=== PATIENT | male | born 1990 | race Caucasian/White ===

== ENCOUNTER 2019-01-04 02:25 | Inpatient (IN) ==
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
[2019-01-04 03:12] LABS: AGAP 16; ALBUMIN 4.5 g/dL (3.5-5.0); ALKALINE PHOSPHATASE 91 U/L (32-122); BUN 7 mg/dL (8-22); CALCIUM 8.8 mg/dL (8.8-10.2); CHLORIDE 103 mmol/L (98-107); COSMO 287; CREATININE 0.7 mg/dL (0.7-1.2); ESTIMATED GFR > 60; GLUCOSE 133 mg/dL (70-104); GOT 38 U/L (10-34); GPT 18 U/L (10-44); POTASSIUM 3.7 mmol/L (3.5-5.1); SODIUM 144 mmol/L (136-145); TCO2 26 mmol/L (25-35)
[2019-01-04 03:41] LABS: BASO# 0.03 X1000 (0.0-0.2); BASO% 0.5 % (0.0-0.8); EOS# 0.08 X1000 (0.0-0.7); EOS% 1.4 % (0.0-10.0); HEMATOCRIT 45.4 % (42.0-52.0); HEMOGLOBIN 15.2 g/dL (14.0-18.0); IMM GRAN# 0.01 X1000 (0.0-0.04); IMM GRAN% 0.2 % (0.0-0.5); LYMPH# 3.14 X1000 (1.2-3.4); LYMPH% 54.2 % (20.5-51.1); MCH 31.3 PG (27-31); MCHC 33.5 g/dL (33-37); MCV 93.4 FL (81-99); MONO# 0.59 X1000 (0.11-0.59); MONO% 10.2 % (1.7-9.3); MPV 10.2 FL (7.4-10.4); NEUT# 1.94 X1000 (1.4-6.5); NEUT% 33.5 % (42.2-75.2); PLT 224 X1000 (130-400); RBC 4.86 XMIL (4.7-6.1); RDW 12.7 % (11.5-14.5); WBC 5.79 X1000 (4.8-10.8)
[2019-01-04 03:47] LABS: UR AMPHETAMINES QUAL NONE DETECTED (NONE DETECT); UR BARBITUATES QUAL NONE DETECTED (NONE DETECT); UR BENZODIAZEPIN QUAL NONE DETECTED (NONE DETECT); UR CANNABINOIDS QUAL NONE DETECTED (NONE DETECT); UR COCAINE QUAL NONE DETECTED (NONE DETECT); UR METHADONE QUAL NONE DETECTED (NONE DETECT); UR METHAMPHETAMINE QUAL NONE DETECTED (NONE DETECT); UR OPIATES QUAL NONE DETECTED (NONE DETECT); UR OXYCODONE QUAL NONE DETECTED (NONE DETECT); UR PCP QUAL NONE DETECTED (NONE DETECT); UR PROPOXYPHENE QUAL NONE DETECTED (NONE DETECT); UR TCA QUAL NONE DETECTED (NONE DETECT)
[2019-01-04 03:48] LABS: BILIRUBIN URINE NEGATIVE (NEGATIVE); BLOOD URINE NEGATIVE (NEGATIVE); CLARITY CLEAR (CLEAR); COLOR YELLOW; GLUCOSE URINE NEGATIVE (NEGATIVE); KETONE URINE NEGATIVE (NEGATIVE); LEUKOCYTES URINE NEGATIVE (NEGATIVE); NITRITE URINE NEGATIVE (NEGATIVE); PROTEIN URINE TRACE mg/dL (NEGATIVE); SP GRAVITY URINE 1.005; URINE BACTERIA NEGATIVE /HFP; URINE EPITHELIAL CELLS <10 /HPF (<10); URINE RBC <10 /HPF (<10); URINE SOURCE CATH; URINE WBC <10 /HPF (<10); UROBILINOGEN URINE NORMAL
--- NOTE | 2019-01-04 05:22 | Diag Imaging Result Doc PS360 ---
EXAM: CHEST-PORTABLE HISTORY: ams - intoxicated TECHNIQUE: Chest single view COMPARISON: 11/16/2018 FINDINGS: The lungs are well expanded. The heart is not enlarged. The vessels are not distended. There are no infiltrates. No effusion identified. IMPRESSION: Negative exam. Electronically signed by Simone Underwood 01/04/2019 5:19 AM
[2019-01-04] MEDS: NS 1,000 ML IV SCH ×5 (05:27→15:54)
[2019-01-04 08:00] LABS: BE 5.3 mmoll (-3.0-3.0); BLOOD TYPE ARTERIAL; METHB 1.1 % (0.0-1.5); O2HB 94.9 % (95.0-99.0); PO2(98.6) 89 mmHg (60-100); SAMPLE BLOOD; SAO2 97.9 % (95.0-100.0); THB 15.7 g/dL (11.5-17.4)
[2019-01-04 08:09] LABS: ALLEN TEST YES; MODALITY ROOM AIR; PCO2(98.6) 51 mmHg (35-45)
[2019-01-04 09:26] LABS: HEMATOCRIT 45.4 % (42.0-52.0); HEMOGLOBIN 15.3 g/dL (14.0-18.0); MCH 31.4 PG (27-31); MCHC 33.7 g/dL (33-37); MCV 93.2 FL (81-99); RBC 4.87 XMIL (4.7-6.1); RDW 13.1 % (11.5-14.5); WBC 3.5 X1000 (4.8-10.8)
[2019-01-04 09:30] LABS: AGAP 10; ALBUMIN 4.4 g/dL (3.5-5.0); ALKALINE PHOSPHATASE 83 U/L (32-122); BUN 7 mg/dL (8-22); CALCIUM 8.5 mg/dL (8.8-10.2); CHLORIDE 107 mmol/L (98-107); COSMO 294; CREATININE 0.8 mg/dL (0.7-1.2); ESTIMATED GFR > 60; GLUCOSE 96 mg/dL (70-104); GOT 34 U/L (10-34); GPT 19 U/L (10-44); POTASSIUM 4.7 mmol/L (3.5-5.1); SODIUM 149 mmol/L (136-145); TCO2 32 mmol/L (25-35); TOTAL PROTEIN 7.8 g/dL (6.3-8.3)
[2019-01-04] MEDS ORDERED: M.V.I.-12 10 ML, FOLIC ACID 1 MG, MAGNESIUM SULFATE 1 GM, THIAMINE 100 MG in NS 1,000 ML IV ONE ×2 (09:44→10:30)
[2019-01-04] MEDS ORDERED: BENTYL PO PRN (09:44)
[2019-01-04] MEDS: LIBRIUM PO SCH ×3 (10:00→23:59)
[2019-01-04] MEDS: ATARAX PO PRN ×2 (15:31→20:40)
[2019-01-04] MEDS: ROBAXIN PO PRN (15:32)
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
[2019-01-04] MEDS: KEPPRA PO SCH (20:40)
[2019-01-05] MEDS ORDERED: BLISTEX MEDICATED BERRY LIP BALM TOP PRN (00:05)
[2019-01-05] MEDS: ATARAX PO PRN (00:29)
--- NOTE | 2019-01-05 01:55 | HISTORY AND PHYSICAL ---
ADDENDUM: Patient seen and examined by myself. Full note dictated and discussed with nurse practitioner. Patient presented to the hospital with acute alcohol intoxication. Alcohol level was markedly elevated. The patient notes that he has been stressed, depressed and has been suicidal. In fact states that he drank hoping to drink himself to . We will admit him to the hospital, observe him, allow him to sober up and we will consult [facility] when he is more alert. Please see full note. cc: Dann Ndiaye MD
[2019-01-05] MEDS: NS 1,000 ML IV SCH ×2 (04:59→12:10)
[2019-01-05] MEDS: LIBRIUM PO SCH (05:00)
[2019-01-05] MEDS: ROBAXIN PO PRN ×2 (05:00)
[2019-01-05 06:45] LABS: HEMATOCRIT 38.9 % (42.0-52.0); HEMOGLOBIN 12.9 g/dL (14.0-18.0); MCH 31.2 PG (27-31); MCHC 33.2 g/dL (33-37); MCV 94.2 FL (81-99); MPV 10.4 FL (7.4-10.4); RBC 4.13 XMIL (4.7-6.1); RDW 12.5 % (11.5-14.5); WBC 5.17 X1000 (4.8-10.8)
[2019-01-05 07:18] LABS: AGAP 11; ALBUMIN 3.6 g/dL (3.5-5.0); ALKALINE PHOSPHATASE 98 U/L (32-122); BUN 11 mg/dL (8-22); CALCIUM 9.1 mg/dL (8.8-10.2); CHLORIDE 103 mmol/L (98-107); COSMO 282; CREATININE 0.7 mg/dL (0.7-1.2); ESTIMATED GFR > 60; GLUCOSE 97 mg/dL (70-104); GOT 27 U/L (10-34); GPT 14 U/L (10-44); MAGNESIUM 1.6 mg/dL (1.5-2.7); POTASSIUM 3.7 mmol/L (3.5-5.1); SODIUM 142 mmol/L (136-145); TCO2 28 mmol/L (25-35); TOTAL PROTEIN 6.4 g/dL (6.3-8.3)
[2019-01-05] MEDS ORDERED: TYLENOL PO PRN (07:56)
[2019-01-05] MEDS ORDERED: LIBRIUM PO SCH (08:00)
[2019-01-05 08:10] VITALS: BP 103/71
[2019-01-05] MEDS ORDERED: KEPPRA PO SCH (09:00)
[2019-01-05] MEDS: KEPPRA PO SCH (10:21)
--- NOTE | 2019-01-06 23:18 | DISCHARGE SUMMARY ---
ADMISSION DATE: 01/04/2019 DISCHARGE DATE: 01/05/2019 DISCHARGE DIAGNOSIS: 1. Acute alcohol intoxication. 2. Hyperbilirubinemia secondary to alcohol intoxication. 3. Acute delirium secondary to intoxication. 4. Suicidal ideations, resolved. CONSULTATIONS: None. PROCEDURES: None. BRIEF HOSPITAL COURSE: The patient is 29-year-old male who presented to the hospital initially claimed that he was suicidal. However after he sobered up he told [facility] that he was no longer suicidal and they declined admission. BRIEF HOSPITAL COURSE: Patient was continued in the hospital on a Librium taper. Patient had uneventful hospital course. DISPOSITION: Patient will be discharged home, prescription for naltrexone was written. We wrote for Librium taper as well. Discussed with patient the importance of stopping drinking. Indication the. cc: Dann Ndiaye MD
== END 2019-01-05 12:15 | disposition home or self-care (01) | DRG 897 ==
LOC: P.ED 02:25 → P.EDIPHOLD 12:15 → P.MEDSURG 23:58
PROVIDERS: ATTEND Family Medicine
CPT/HCPCS: 51702; 71010; 71045; 80053; 80104; 80301; 80305; 80307; 80320; 81001; 82055; 82248; 82805; 83735; 85025; 85027; 93005; 96365; 96366; 99285; A9270; G0431; G0434; G0477; G0480; G6040; J3411; J3475; J7030

== ENCOUNTER 2019-03-04 12:05 | Inpatient (IN) ==
[2019-03-04 13:10] LABS: BASO# 0.02 X1000 (0.0-0.2); BASO% 0.4 % (0.0-0.8); EOS# 0.02 X1000 (0.0-0.7); EOS% 0.4 % (0.0-10.0); HEMATOCRIT 41.6 % (42.0-52.0); IMM GRAN# 0.01 X1000 (0.0-0.04); IMM GRAN% 0.2 % (0.0-0.5); LYMPH# 1.94 X1000 (1.2-3.4); LYMPH% 37.5 % (20.5-51.1); MCH 33.6 PG (27-31); MCHC 36.1 g/dL (33-37); MCV 93.3 FL (81-99); MONO# 0.47 X1000 (0.11-0.59); MONO% 9.1 % (1.7-9.3); MPV 9.7 FL (7.4-10.4); NEUT# 2.71 X1000 (1.4-6.5); NEUT% 52.4 % (42.2-75.2); PLT 178 X1000 (130-400); RBC 4.46 XMIL (4.7-6.1); RDW 14.1 % (11.5-14.5); WBC 5.17 X1000 (4.8-10.8)
[2019-03-04 13:12] LABS: BLOOD TYPE ARTERIAL; HCO3-(ACT) 30.3 mmoll (20.0-26.0); METHB 1.3 % (0.0-1.5); O2(CT) 19.7 mL/dL (15.0-23.0); O2HB 94.1 % (95.0-99.0); PCO2(98.6) 37 mmHg (35-45); PO2(98.6) 80 mmHg (60-100); SAMPLE BLOOD; SAO2 97.6 % (95.0-100.0); THB 14.9 g/dL (11.5-17.4); pH(98.6) 7.52 (7.35-7.45)
[2019-03-04 13:14] LABS: ALLEN TEST YES; MODALITY ROOM AIR
[2019-03-04 13:30] LABS: AGAP 19; ALBUMIN 4.4 g/dL (3.5-5.0); ALKALINE PHOSPHATASE 90 U/L (32-122); BUN 9 mg/dL (8-22); CHLORIDE 94 mmol/L (98-107); COSMO 278; CREATININE 0.7 mg/dL (0.7-1.2); ESTIMATED GFR > 60; GLUCOSE 160 mg/dL (70-104); GOT 30 U/L (10-34); GPT 12 U/L (10-44); LIPASE 71 U/L (13-60); POTASSIUM 4.2 mmol/L (3.5-5.1); SODIUM 138 mmol/L (136-145); TCO2 26 mmol/L (25-35); TOTAL PROTEIN 7.7 g/dL (6.3-8.3)
[2019-03-04] MEDS ORDERED: NS 1,000 ML IV ONE (13:41)
[2019-03-04 13:54] LABS: OCCULT BLOOD 1 NEGATIVE (NEGATIVE)
[2019-03-04] MEDS ORDERED: ZOFRAN IV ONE ×2 (14:01)
[2019-03-04 14:26] LABS: BILIRUBIN URINE NEGATIVE (NEGATIVE); BLOOD URINE NEGATIVE (NEGATIVE); CLARITY CLEAR (CLEAR); COLOR AMBER; KETONE URINE 2+(Moderate) mg/dL (NEGATIVE); LEUKOCYTES URINE TRACE (NEGATIVE); NITRITE URINE NEGATIVE (NEGATIVE); PROTEIN URINE TRACE mg/dL (NEGATIVE); UROBILINOGEN URINE 4 mg/dL
[2019-03-04 14:41] LABS: URINE SOURCE CLEAN CATCH
[2019-03-04 14:42] LABS: URINE BACTERIA 2+ /HFP; URINE CAST NONE SEEN /LPF; URINE CRYSTAL NONE SEEN /HPF; URINE EPITHELIAL CELLS <10 /HPF (<10); URINE RBC <10 /HPF (<10); URINE WBC <10 /HPF (<10); URINE YEAST NONE SEEN /HPF
--- NOTE | 2019-03-04 16:05 | Diag Imaging Result Doc PS360 ---
EXAM: US GB < RUQ (LIMITED) - 03/04/2019 HISTORY: abd pain TECHNIQUE: Ultrasound gallbladder COMPARISON: None. FINDINGS: The gallbladder is somewhat distended, measuring 11 cm in length by up to three 3.7 cm in diameter. There is no evidence of gallstones. There is no abnormal gallbladder wall thickening identified. The technologist reports negative sonographic Byrd's sign. The common bile duct is normal caliber at 4 mm. The liver appears mildly echodense diffusely suggesting fatty infiltration. There is no focal liver lesion identified. Doppler image shows hepatopedal flow in the portal vein. The visualized pancreas appears diffusely mildly hypoechoic but normal size, compatible with normal appearance for the patient's age. The right kidney is unremarkable. Abdominal aorta appears normal caliber. IMPRESSION: Somewhat distended gallbladder. No evidence of gallstones. No abnormal gallbladder wall thickening. Normal caliber common bile duct at 4 mm. Electronically signed by Jordan Maya 03/04/2019 4:02 PM
[2019-03-04] MEDS ORDERED: ATIVAN IV ONE (16:20)
[2019-03-04] MEDS ORDERED: ROBAXIN PO PRN (16:21)
[2019-03-04] MEDS: LIBRIUM PO SCH ×2 (16:57→22:20)
[2019-03-04] MEDS ORDERED: M.V.I.-12 10 ML, FOLIC ACID 1 MG, MAGNESIUM SULFATE 1 GM, THIAMINE 100 MG in NS 1,000 ML IV SCH (17:00)
[2019-03-04] MEDS: PROTONIX IV SCH (17:06)
[2019-03-04] MEDS: BENTYL PO PRN (17:10)
[2019-03-04] MEDS: M.V.I.-12 10 ML, FOLIC ACID 1 MG, MAGNESIUM SULFATE 1 GM, THIAMINE 100 MG in NS 1,000 ML IV SCH (17:33)
[2019-03-04] MEDS: NS 1,000 ML IV SCH (17:33)
[2019-03-04 17:35] LABS: UR AMPHETAMINES QUAL NONE DETECTED (NONE DETECT); UR BARBITUATES QUAL NONE DETECTED (NONE DETECT); UR BENZODIAZEPIN QUAL NONE DETECTED (NONE DETECT); UR CANNABINOIDS QUAL NONE DETECTED (NONE DETECT); UR COCAINE QUAL NONE DETECTED (NONE DETECT); UR METHADONE QUAL NONE DETECTED (NONE DETECT); UR METHAMPHETAMINE QUAL NONE DETECTED (NONE DETECT); UR OPIATES QUAL NONE DETECTED (NONE DETECT); UR OXYCODONE QUAL NONE DETECTED (NONE DETECT); UR PCP QUAL NONE DETECTED (NONE DETECT); UR PROPOXYPHENE QUAL NONE DETECTED (NONE DETECT); UR TCA QUAL NONE DETECTED (NONE DETECT)
--- NOTE | 2019-03-04 19:07 | HISTORY AND PHYSICAL ---
ADDENDUM TO HISTORY AND PHYSICAL: Patient seen and examined by myself. Full note dictated and discussed with nurse practitioner. Patient presented to the hospital with epigastric abdominal pain, nausea. States he has lost 20 pounds in the past 5 or 6 days. However, upon reviewing his chart, he was in the hospital in December of this year and weighed 156 and today his weight is 145. Does have a known history of chronic alcoholism. Notes he has been heavily drinking recently. States he has not drank in the past couple of days. PLAN: We will admit him to the hospital. Place him on a Librium taper, IV fluids. Again, will business and financial counsel him on the perils of alcoholism. We will continue to follow. Ultrasound of his abdomen is currently pending. cc: Dann Ndiaye MD
--- NOTE | 2019-03-04 19:52 | HISTORY AND PHYSICAL ---
CHIEF COMPLAINT: Generalized muscle aches, shaking, and nausea and vomiting. HISTORY OF PRESENT ILLNESS: Mr. Chow is a 29-year-old male with a history of alcohol dependence and anxiety. He has been drinking heavily over the past month and has been trying to wean himself down, and he was down to about a bottle of wine a day, which he stopped drinking on Wednesday. He says since that time he has had abdominal pain, nausea, vomiting, diarrhea, shaking, nervousness, anxiety and muscle cramping. He came to the ER today for evaluation. In the ER he had labs done which showed a metabolic alkalosis, slightly elevated lipase, and a t-bili of 2.8. His ABG did show a lactic acid of 5.1. An abdominal ultrasound was done which showed a somewhat distended gallbladder but no evidence of gallstones, no abnormal gallbladder wall thickening, and normal CBD. He is going to be admitted for alcohol withdrawal. PAST MEDICAL HISTORY: 1. Alcohol dependence. 2. History of depression and suicide attempts in the past. 3. Substance dependence.4 4. Seizure disorder. 5. PTSD. PAST SURGICAL HISTORY: He has had left leg and right hand surgery . SOCIAL HISTORY: He has been down to a bottle of wine a day but was drinking a fifth of whiskey about a month ago. There are reports of smokeless tobacco and methamphetamine abuse, but he denies that now. FAMILY HISTORY: Noncontributory. REVIEW OF SYSTEMS: A 14-point review of systems was obtained and found to be negative with the exception of the HPI. ALLERGIES: No known drug allergies. HOME MEDICATIONS: He takes Ativan, per his report, but he stopped taking that about 5-6 days ago. PHYSICAL EXAMINATION: VITAL SIGNS: Blood pressure is 118/78, heart rate 97, respiratory rate 18, O2 saturation 98% on room air, temperature 97.7. GENERAL: Well-developed, well-nourished male lying in the hospital bed, tremulous and nervous but in no acute distress. NEUROLOGIC: No focal deficits. HEENT: Head is atraumatic and normocephalic. Pupils are equal, round and reactive to light. Oral mucosa is dry. NECK: Trachea is midline. There is no JVD. CHEST: Clear to auscultation. CV: Tachycardic but regular. S1 and S2 is noted. No murmurs. GI: Soft, diffusely tender but nondistended. Bowel sounds are active. EXTREMITIES: No edema, clubbing or cyanosis. Pulses 1+ bilaterally. DIAGNOSTIC DATA: WBCs 5.7, hemoglobin 15, hematocrit 41.6, platelet count 178. ABG on room air: pH of 7.52, CO2 of 37, O2 of 80, bicarbonate 30.3, lactic acid 5.1. Sodium 138, potassium 4.2, chloride 94. CO2 is 26, anion gap 19, BUN 9, creatinine 0.7, glucose 160. T-bili 2.8, AST 30, ALT 20, alkaline phosphatase 90, protein 7.7. Amylase 29, lipase 71. Lactic acid 1.8. UA shows 2+ ketones, trace protein, trace glucose. Stool occult blood is negative. Right upper quadrant ultrasound shows slight fatty infiltration of the liver but nothing acute. ASSESSMENT/PLAN: 1. Alcohol withdrawal: The patient will be admitted and started on Librium taper. Will given him 1 mg of IV Ativan now. Continue daily banana bags and IV Protonix. Continue cessation discussions with him on a daily basis and refer him to long-term care if needed once he is more stable. Alcohol level is pending. 2. Isolated hyperbilirubinemia: Ultrasound of the abdomen is negative for acute process. Likely related to his alcohol consumption and possibly illicit substances as well. Continue IV fluids and monitor. 3. Isolated lactic acidosis on arterial blood gas: Serum lactic acid normal at 1.8. If any abnormality existed, it was probably volume depletion, which we are correcting now. Will monitor that as well. 4. Deep venous thrombosis prophylaxis with sequential compression devices. 5. Further recommendations to follow. Dictated by MICAELA Alexandra for Dann Ndiaye MD cc: MICAELA Alexandra MD
[2019-03-04] MEDS: KEPPRA PO SCH (21:13)
[2019-03-04] MEDS: ATARAX PO PRN (21:22)
[2019-03-04] MEDS: ZOFRAN ODT PO PRN (22:20)
[2019-03-05] MEDS: NS 1,000 ML IV SCH ×3 (03:41→16:28)
[2019-03-05] MEDS: LIBRIUM PO SCH ×3 (04:18→16:16)
[2019-03-05 07:20] LABS: AGAP 7; ALBUMIN 3.3 g/dL (3.5-5.0); ALKALINE PHOSPHATASE 68 U/L (32-122); BUN 7 mg/dL (8-22); CALCIUM 7.9 mg/dL (8.8-10.2); CHLORIDE 105 mmol/L (98-107); COSMO 276; CREATININE 0.7 mg/dL (0.7-1.2); ESTIMATED GFR > 60; GLUCOSE 99 mg/dL (70-104); GOT 21 U/L (10-34); GPT 7 U/L (10-44); POTASSIUM 3.7 mmol/L (3.5-5.1); SODIUM 139 mmol/L (136-145); TCO2 27 mmol/L (25-35); TOTAL PROTEIN 5.6 g/dL (6.3-8.3)
[2019-03-05 07:56] LABS: HEMATOCRIT 33.6 % (42.0-52.0); HEMOGLOBIN 11.7 g/dL (14.0-18.0); MCH 33.6 PG (27-31); MCHC 34.8 g/dL (33-37); MCV 96.6 FL (81-99); MPV 9.6 FL (7.4-10.4); RBC 3.48 XMIL (4.7-6.1); RDW 14.1 % (11.5-14.5); WBC 4.1 X1000 (4.8-10.8)
[2019-03-05] MEDS: KEPPRA PO SCH ×2 (10:32→21:17)
[2019-03-05] MEDS: BENTYL PO PRN (10:38)
[2019-03-05] MEDS ORDERED: NS 1,000 ML IV SCH (15:15)
[2019-03-05] MEDS: SODIUM CHLORIDE 0.9% INJ SCH (16:16)
[2019-03-05] MEDS: PROTONIX IV SCH (16:16)
[2019-03-05] MEDS: M.V.I.-12 10 ML, FOLIC ACID 1 MG, MAGNESIUM SULFATE 1 GM, THIAMINE 100 MG in NS 1,000 ML IV SCH (16:16)
[2019-03-05] MEDS ORDERED: SEROQUEL PO ONE (21:49)
[2019-03-05] MEDS ORDERED: ROCEPHIN 1 GM in NS 50 ML IV SCH (22:00)
--- NOTE | 2019-03-05 23:56 | PROGRESS NOTE ---
DATE: 03/05/2019 SUBJECTIVE: Patient notes that the pain in his left lower extremity is slightly improved, still problematic. Denies any fevers, chills. Denies any chest pain or palpitation. PHYSICAL EXAMINATION: Vital signs: Reviewed and stable. General: He is awake, alert. He is in no current respiratory distress. HEENT: Normocephalic. Neck: Supple. Cardiovascular: Regular rate. Chest: Clear. Abdomen: Soft. Extremities: Moves all extremities. ASSESSMENT: 1. Acute alcohol withdrawal syndrome. 2. Isolated hyperbilirubinemia. PLAN: We will continue patient in the hospital. Continue to wean Librium. Hopefully home over the next 1 or 2 days. cc: Dann Ndiaye MD
[2019-03-06] MEDS: LIBRIUM PO SCH ×3 (00:09→16:54)
[2019-03-06] MEDS: KEPPRA PO SCH ×2 (09:24→21:03)
[2019-03-06] MEDS: NS 1,000 ML IV SCH ×2 (09:34→09:37)
[2019-03-06] MEDS ORDERED: NS 50 ML ONE (11:02)
[2019-03-06] MEDS: BENTYL PO PRN (16:54)
[2019-03-06] MEDS: M.V.I.-12 10 ML, FOLIC ACID 1 MG, MAGNESIUM SULFATE 1 GM, THIAMINE 100 MG in NS 1,000 ML IV SCH (16:54)
[2019-03-06] MEDS: ATARAX PO PRN (16:55)
[2019-03-06] MEDS: PROTONIX IV SCH ×2 (17:00→18:42)
[2019-03-06] MEDS ORDERED: IMODIUM PO PRN (19:27)
--- NOTE | 2019-03-06 19:47 | PROGRESS NOTE ---
DATE: 03/06/2019 SUBJECTIVE: Patient has no major complaints except for diarrhea and abdominal cramping in his lower abdomen. OBJECTIVE: Vital Signs: Blood pressure 128/73, heart rate of 94, respiratory rate 22, temperature was 98.5. Cardiovascular: Regular rate and rhythm. Pulmonary: Bilateral breath sounds. Clear to auscultation. GI: Soft, nontender, nondistended. Bowel sounds are positive. PROBLEM LIST: 1. Alcohol withdrawal syndrome. Seems to be doing okay. He is on a Librium taper. He is on a banana bag. I am going to stop the banana bag just because he has diarrhea. I am not sure if the magnesium may be making that worse. 2. Gastrointestinal: Diarrhea, hyperbilirubinemia, abdominal pain, cramping, which may be just all part of withdrawal. He did have an elevated lactate. It is unclear, but he says he has significant diarrhea which has taken place since for the last 10 days even before he stopped drinking alcohol. 3. Seizure disorder. He is on Keppra. DISPOSITION: I am going to probably stop his Rocephin just in case it is contributing to diarrhea. We will get a CT scan, stool samples and follow and treat empirically. DISPOSITION: Pending clinical status. We will continue to follow. cc: Andres Machuca MD
[2019-03-06] MEDS ORDERED: SEROQUEL PO SCH (21:00)
[2019-03-06] MEDS: NUBAIN IV PRN (21:06)
[2019-03-07] MEDS: LIBRIUM PO SCH ×3 (00:09→17:21)
[2019-03-07] MEDS: NS 1,000 ML IV SCH ×5 (03:55→17:08)
[2019-03-07] MEDS: NUBAIN IV PRN ×3 (06:31→16:43)
[2019-03-07 07:36] LABS: BASO# 0.01 X1000 (0.0-0.2); BASO% 0.2 % (0.0-0.8); EOS# 0.22 X1000 (0.0-0.7); HEMOGLOBIN 11.5 g/dL (14.0-18.0); IMM GRAN# 0.01 X1000 (0.0-0.04); IMM GRAN% 0.2 % (0.0-0.5); LYMPH# 1.34 X1000 (1.2-3.4); LYMPH% 24.5 % (20.5-51.1); MCHC 33.8 g/dL (33-37); MCV 100.6 FL (81-99); MONO# 0.44 X1000 (0.11-0.59); MPV 10.2 FL (7.4-10.4); NEUT# 3.46 X1000 (1.4-6.5); NEUT% 63.1 % (42.2-75.2); PLT 130 X1000 (130-400); RBC 3.38 XMIL (4.7-6.1); RDW 14.5 % (11.5-14.5); WBC 5.48 X1000 (4.8-10.8)
[2019-03-07 08:06] LABS: AGAP 8; ALBUMIN 3.4 g/dL (3.5-5.0); ALKALINE PHOSPHATASE 102 U/L (32-122); BUN 5 mg/dL (8-22); CHLORIDE 107 mmol/L (98-107); COSMO 286; CREATININE 0.8 mg/dL (0.7-1.2); DIRECT BILIRUBIN < 0.20 mg/dL (0.00-0.20); ESTIMATED GFR > 60; GLUCOSE 93 mg/dL (70-104); GOT 15 U/L (10-34); GPT 8 U/L (10-44); POTASSIUM 3.9 mmol/L (3.5-5.1); SODIUM 145 mmol/L (136-145); TCO2 30 mmol/L (25-35)
[2019-03-07] MEDS: KEPPRA PO SCH ×2 (08:33→21:08)
--- NOTE | 2019-03-07 10:21 | Diag Imaging Result Doc PS360 ---
EXAM: CT ABD/PELVIS W/PO AND IV CON - 03/07/2019 HISTORY: pain, severe diarrhea TECHNIQUE: CT abdomen/pelvis with oral and intravenous contrast COMPARISON: 03/04/2019 ultrasound gallbladder FINDINGS: The visualized lung bases appear clear except for mild dependent atelectasis. There are no substantial abnormalities of the liver, spleen, adrenal glands, or pancreas identified. The gallbladder is partially contracted. There is a questionable tiny gallstone in the dependent portion of gallbladder. There is no pericholecystic inflammation identified. The bilateral kidneys enhance homogeneously. There is no hydronephrosis. The urinary bladder [place] appear diffusely mildly thickened. There is no evidence of bowel obstruction. The appendix is questionably visualized in is unremarkable. There are nonspecific small mesenteric lymph nodes. There is some apparent wall thickening along much of the colon, which is most conspicuous at the right colon. This may relate to colitis. There are no gross pericolic inflammatory changes identified, however. There is no abscess identified. There is no free air. There is a small amount of free fluid in the pelvis. IMPRESSION: Partially contracted gallbladder. Questionable tiny gallstone. No evidence of pericholecystic inflammation. Apparent colitis. No gross pericolic inflammation. No abscess. No free air. Small amount of free fluid in pelvis. No bowel obstruction. Nonspecific small mesenteric lymph nodes. Mildly thickened urinary bladder [place]. No hydronephrosis. This exam was performed using automated exposure control, adjustment of mA or kV according to patient size, and/or use of iterative reconstruction technique. Electronically signed by Jordan Maya 03/07/2019 10:19 AM
[2019-03-07 10:36] LABS: OCCULT BLOOD 1 NEGATIVE (NEGATIVE)
[2019-03-07] MEDS: CIPRO 400 MG/D5W 400 MG/200 ML IVPB IV SCH ×3 (11:00→23:16)
[2019-03-07] MEDS: FLAGYL 500 MG/NS 500 MG/100 ML IVPB IV SCH ×3 (12:09→23:16)
[2019-03-07] MEDS: SODIUM CHLORIDE 0.9% INJ SCH (17:08)
[2019-03-07] MEDS: PROTONIX IV SCH (17:08)
[2019-03-07] MEDS ORDERED: NS 1,000 ML IV SCH (20:03)
--- NOTE | 2019-03-07 20:34 | PROGRESS NOTE ---
DATE: 03/07/2019 SUBJECTIVE: He is still having diarrhea, but it is not a profuse amount. The patient is very concerned. He is still having pain. OBJECTIVE: Vital Signs: Blood pressure is 147/97, heart rate of 100, respiratory rate 21, temperature 97.8 degrees. Cardiovascular: Regular rate and rhythm. Pulmonary: Bilateral breath sounds, clear to auscultation. GI: Soft, nontender, and nondistended. Bowel sounds are positive. LABORATORY DATA: White count was 5, hemoglobin and hematocrit 11 and 34, platelets stable. Basic was normal. PROBLEM LIST: 1. Alcohol withdrawal syndrome. He is stabilized. He is off Librium. 2. Colitis. Really unclear etiology to his colitis. Presumably, at his age it would be infectious, so we started antibiotics and I have ordered stool studies, and we will continue to follow. So far, testing is really unremarkable. 3. Disposition. If he is stable, I anticipate discharge tomorrow. cc: Andres Machuca MD
[2019-03-07] MEDS ORDERED: SEROQUEL PO SCH (21:00)
[2019-03-07] MEDS: MORPHINE IV PRN (21:08)
[2019-03-08] MEDS: ATARAX PO PRN (02:05)
[2019-03-08] MEDS: MORPHINE IV PRN ×2 (02:05→08:34)
[2019-03-08] MEDS: FLAGYL 500 MG/NS 500 MG/100 ML IVPB IV SCH ×2 (05:16→11:59)
[2019-03-08 07:42] VITALS: BP 136/81
[2019-03-08] MEDS: KEPPRA PO SCH (08:12)
[2019-03-08] MEDS: ZOFRAN ODT PO PRN (08:34)
[2019-03-08] MEDS: CIPRO 400 MG/D5W 400 MG/200 ML IVPB IV SCH (10:04)
[2019-03-08 12:28] LABS: HEPATITIS PROFILE ACUTE SEE COMMENTS
--- NOTE | 2019-03-08 21:44 | PROGRESS NOTE ---
DATE: 03/08/2019 NOTE: The patient is doing okay the day of discharge. Diarrhea has dropped down. He reports a couple of bowel movements last night, and these were very small bowel movements. They are not full bowel movement. Some of it is just kind of mucous-like. Abdominal pain is stable. He said he had some pain throughout the night. Workup other than that is negative. He is heme negative. C. difficile is negative. Micro is pending but nothing for sure. His white blood cells are negative. In any case, patient is stable, and we are going to discharge him today on oral antibiotics, and he can follow up with GI if he has persistence in his symptoms. cc: Andres Machuca MD
--- NOTE | 2019-03-09 02:13 | DISCHARGE SUMMARY ---
ADMISSION DATE: 03/04/2019 DISCHARGE DATE: 03/08/2019 CONSULTATIONS: None. PERTINENT PROCEDURES: 1. Abdominal ultrasound. Somewhat distended gallbladder. No evidence of gallstones, normal abnormal gallbladder wall thickening. Normal caliber common bile duct at 4 mm. 2. Abdomen and pelvis CT. Partially contracted gallbladder, questionable tiny gallstone. No evidence of pericholecystic inflammation, apparent colitis. No bowel obstruction. DISCHARGE DIAGNOSES: 1. Alcohol withdrawal syndrome. Patient is stable, has been off Librium. 2. Colitis of unclear etiology. Given his age, presumably infectious. He was initiated on antibiotics. Follow up stool studies and will be discharged home on Cipro and Flagyl. HOSPITAL COURSE: Briefly, Mr. Chow is a 29-year-old male with history of alcohol dependence and anxiety. He had been drinking heavily over the past month and had been trying to wean himself down, and he was down to about a bottle of wine a day, which she stopped drinking Wednesday prior to his admission. He says since that time he has been having abdominal pain, nausea, vomiting, diarrhea, shaking, nervousness, anxiety, and muscle cramping. He came to the ED for evaluation. He was noted to have metabolic alkalosis, slightly elevated lipase, a T bilirubin of 2.8. ABG did show a lactic acid of 5.1. His abdominal ultrasound showed a somewhat distended gallbladder, but no evidence of gallstones or abnormal gallbladder wall thickening, and normal CBD. He was admitted for alcohol withdrawal, started on a Librium taper, daily banana bags, IV Protonix, social service involvement for discussions of possible rehab, if warranted. Discussed alcohol cessation daily. He did start to have episodes of diarrhea. They did an abdomen and pelvis CT that did show colitis. He was initiated on IV antibiotics. He has continued to improve. He is stabilized off his Librium and will be discharged home on p.o. antibiotics for his colitis. He was provided with information for [facility] [employer] [employer], [email or web address] by [facility] service as well as encouraged AA or [facility]. VITAL SIGNS: At time of discharge, temperature is 97.7 degrees, heart rate 80, respirations 16, blood pressure 136/81, O2 is 99% on room air. DISCHARGE DIET: Regular. DISCHARGE MEDICATIONS: 1. Ativan 2 mg p.o. b.i.d. 2. Cipro 500 mg p.o. b.i.d. 3. Flagyl 500 mg p.o. t.i.d. 4. Keppra 500 mg p.o. b.i.d. 5. Librium 25 mg p.o. q.8 hours p.r.n. alcohol withdrawal. 6. [place] 7.5/325 one each p.o. q.6 hours p.r.n. pain. DISCHARGE DISPOSITION: Mr. Chow is being discharged back home with family. Again, he has been provided information by [employer] for possible rehab placement and supportive care. He is to take all antibiotics as prescribed. He can return to the ED or call 911 for any worsening of symptoms. Continue with alcohol cessation. Dictated by MICAELA Grove for Andres Machuca MD cc: Andres Machuca MD
== END 2019-03-08 12:55 | disposition home or self-care (01) | DRG 897 ==
LOC: P.MEDSURG 12:05 → P.ED 12:05 → OBSVTOIN 17:17 → SUATTDRO 17:17
PROVIDERS: ATTEND Internal Medicine
CPT/HCPCS: 74177; 76705; 80048; 80053; 80074; 80076; 80104; 80301; 80305; 80307; 80320; 81001; 82055; 82150; 82270; 82805; 83605; 83630; 83690; 85025; 85027; 87045; 87046; 87088; 87177; 87205; 87324; 87427; 87798; 88313; 89055; 96361; 96374; 96375; 99285; A9270; C9113; G0431; G0434; G0477; G0480; G6040; J0696; J0744; J2060; J2270; J2300; J2405; J3411; J3475; J7030; Q9967; S0030; S0164